=== PATIENT | female | born 1965 ===

== ENCOUNTER 2017-04-02 11:43 | Emergency (ER) | payer MEDICAID, OTHER ==
[2017-04-02 11:43] VITALS: BMI 29.5
[2017-04-02 13:37] LABS: BASO # 0.1 K/uL (0.0-0.2); MONO # 0.6 K/uL (0.0-0.8)
[2017-04-02 13:39] LABS: BASO % 0.9 % (0.0-2.0); EOS # 0.2 K/uL (0.0-0.7); EOS % 2.3 % (0.0-4.0); HEMATOCRIT 39.5 % (34.0-47.0); LYMPH % 19.5 % (20.0-40.0); MEAN CELL VOLUME 98.7 fL (81.0-99.0); MEAN CORPUSCULAR HGB CONC 33.5 g/dL (33.0-37.0); MEAN PLATELET VOLUME 8.3 fL (7.2-11.7); MONO % 6.1 % (0.0-10.0); NRBC % 0.1 % (0.0-2.0); RED CELL DISTRIBUTION WIDTH 15.5 % (11.5-14.5); WHITE BLOOD COUNT 10.3 K/uL (4.8-10.8)
[2017-04-02 13:59] LABS: RBC URINE < 1 /hpf (0-3); URINE BILIRUBIN NEGATIVE (NEGATIVE); URINE BLOOD NEGATIVE (NEGATIVE); URINE COLOR Yellow (YELLOW); URINE GLUCOSE (UA) NORMAL (Normal); URINE KETONE NEGATIVE (NEGATIVE); URINE LEUKOCYTE ESTERASE NEG Leu/uL (Negative); URINE PROTEIN NEGATIVE (NEGATIVE); URINE UROBILINOGEN NORMAL mg/dL (0.2-1.0)
[2017-04-02] MEDS ORDERED: Sodium Chloride 0.9% 1,000 ML IV ONE (14:15)
[2017-04-02 14:19] LABS: ALCOHOL SERUM < 10 mg/dl (0-10); ALKALINE PHOSPHATASE 56 U/L (38-126); ALT/SGPT 35 U/L (9-52); AST/SGOT 30 U/L (14-36); BILIRUBIN,TOTAL 0.4 mg/dL (0.2-1.3); BLOOD UREA NITROGEN 7 mg/dL (7-17); CARBON DIOXIDE 29 mmol/L (22-30); CHLORIDE 99 mmol/L (98-107); GFR AFRICAN-AMERICAN > 60; GLUCOSE,RANDOM 72 mg/dL (65-105); POTASSIUM 3.8 mmol/L (3.6-5.2); SODIUM 129 mmol/L (132-148); TOTAL PROTEIN 8.3 g/dL (6.3-8.3)
[2017-04-02] MEDS ORDERED: Sodium Chloride 0.9% 1,000 ML ONE (14:46)
[2017-04-02] MEDS ORDERED: Morphine 4 MG/ML VIAL ONE (14:51)
--- NOTE | 2017-04-02 14:54 | C.PDOC ---
History Of Present Illness 51 y/o female presents to ED with complaints of abdominal pain for 2 days with associated vomiting and diarrhea. Patient states she took Ibuprofen this morning with transient relief. Patient denies fever, chills, back pain, urinary symptoms, blood in stool or any other complaints at this time. H/o similar symptoms in the past, diagnosed with gastritis. Admits to cocaine and alcohol use yesterday. Time Seen by Provider: 04/02/17 12:46 Chief Complaint (Nursing): Abdominal Pain History Per: Patient History/Exam Limitations: no limitations Onset/Duration Of Symptoms: Days Current Symptoms Are (Timing): Still Present Past Medical History Reviewed: Historical Data, Nursing Documentation, Vital Signs Vital Signs: Last Vital Signs Temp 98.3 F 04/02/17 17:33 Pulse 65 04/02/17 17:33 Resp 20 04/02/17 17:33 BP 99/63 L 04/02/17 17:33 Pulse Ox 97 04/02/17 17:33 - Medical History PMH: Anxiety, Arthritis, Asthma, Bipolar Disorder, COPD, Depression, Emphysema, Fractures (R arm), HTN, Kidney Stones (patientv states she doesn't remember), Schizophrenia, Seizures Surgical History: No Surg Hx - [facility] Procedures DETOXIFICATION SERVICES FOR SUBSTANCE ABUSE TREATMENT (07/20/15) IMMOBILIZ/WOUND ATTN NEC (12/04/13) INJECT/INFUSE ELECTROLYT (04/13/13) INJECT/INFUSE NEC (12/04/13) INTRODUCE OF OTH THERAP SUBST INTO RESP TRACT, VIA OPENING (09/25/16) MEDS [facility] FOR SUBSTANCE ABUSE TREATMENT, ANTABUSE (07/20/15) NEBULIZER THERAPY (07/27/13) Family History: States: No Known Family Hx - Social History Hx Tobacco Use: Yes Hx Alcohol Use: Yes Hx Substance Use: Yes (heroin, marijuana) - Immunization History Hx Tetanus Toxoid Vaccination: Yes Hx Influenza Vaccination: Yes Hx Pneumococcal Vaccination: Yes Review Of Systems Constitutional: Negative for: Fever, Chills Gastrointestinal: Positive for: Vomiting, Abdominal Pain, Diarrhea Genitourinary: Negative for: Dysuria, Hematuria Musculoskeletal: Negative for: Back Pain Skin: Negative for: Rash Physical Exam - Physical Exam Appears: Non-toxic, Other (In painful distress) Skin: Warm, Dry, No Rash Head: Atraumatic, Normacephalic Eye(s): bilateral: Normal Inspection, EOMI Nose: Normal Oral Mucosa: Moist Chest: Symmetrical Cardiovascular: Rhythm Regular Respiratory: Normal Breath Sounds, No Rales, No Rhonchi, No Wheezing Gastrointestinal/Abdominal: Soft, Tenderness (Left sided abdomen), No Guarding, No Rebound Back: No CVA Tenderness Extremity: Normal ROM, Capillary Refill (<2 seconds) Neurological/Psych: Oriented x3 ED Course And Treatment - Laboratory Results Result Diagrams: 04/02/17 13:31 04/02/17 13:31 O2 Sat by Pulse Oximetry: 98 (RA) Pulse Ox Interpretation: Normal - CT Scan/US Abd/Pelvis Other Rad Studies (CT/US): Read By Radiologist, Radiology Report Reviewed CT/US Interpretation: PROCEDURE: CT Abdomen and Pelvis with contrast. HISTORY : pain. COMPARISON: None. TECHNIQUE: Contrast dose: Visipaque 320, 100 cc. Radiation dose: Total exam DLP = 244.73 mGy-cm. This CT exam was performed using one or more of the following dose reduction techniques: Automated exposure control, adjustment of the mA and/or kV according to patient size, and/ or use of iterative reconstruction technique. FINDINGS: LOWER THORAX: Unremarkable. LIVER: Diffuse penetration liver with liver is appreciated without focal mass or intrahepatic biliary duct dilatation identified. GALLBLADDER AND BILE DUCTS: Partially contracted which may account for limited mural thickening. No pericholecystic fluid collection or radiodense cholelithiasis related. CBD appears normal caliber. PANCREAS: Unremarkable. No gross lesion or ductal dilatation. SPLEEN: Unremarkable. ADRENALS: Unremarkable. No mass. KIDNEYS AND URETERS: Unremarkable. No hydronephrosis. No solid mass. VASCULATURE: Unremarkable. No aortic aneurysm. BOWEL: Lack of oral contrast limits the evaluation the gastrointestinal tract however there is no bowel obstruction appreciated or gross mural thickening. Limited retained fecal material scattered throughout the large bowel. APPENDIX: Normal appendix. PERITONEUM: Unremarkable. No free fluid. No free air. LYMPH NODES: Unremarkable. No enlarged lymph nodes. BLADDER: Unremarkable. REPRODUCTIVE : Trace fluid is seen in the endometrial cavity with the reproductive system otherwise unremarkable appearing. BONES: No acute fracture. OTHER FINDINGS: None. IMPRESSION: Trace fluid is seen the endometrial cavity. There is diffuse fatty infiltration of the liver. Remainder the examination is unremarkable as discussed above. Lack of oral contrast limits evaluation the gastrointestinal tract. Progress Note: Toradol ordered. On re-evaluation, pain improved minimally. Morphine and CT scan abdomen ordered. On re-evalaution, Patient is resting comfortably, abdomen remains soft, and patient is tolerating PO. Patient feels comfortable going home. Instructed to follow up with PMD in 1-2 days or return to ER if symtpoms persist or worsen. Disposition - Disposition Referrals: [facility] at [facility] [Outside] Miguel Ángel Chavez MD [Staff Provider] - Disposition: HOME/ ROUTINE Disposition Time: 17:12 Condition: STABLE Additional Instructions: Follow up with PMD in 1-2 days. Return to ER if symptoms persist or worsen. Prescriptions: Dicyclomine [Bentyl] 10 mg PO QID #20 cap Instructions: Acute Abdominal Pain (ED) Forms: [employer] 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 - Scribe Statement The provider has reviewed the documentation as recorded by the Robbiibchris Mcguire All medical record entries made by the Robbiibchris were at my direction and personally dictated by me. I have reviewed the chart and agree that the record accurately reflects my personal performance of the history, physical exam, medical decision making, and the department course for this patient. I have also personally directed, reviewed, and agree with the discharge instructions and disposition.
[2017-04-02] MEDS ORDERED: Iodixanol 320 MG/ML 100 ML BOTTLE IV ONE (15:24)
--- NOTE | 2017-04-02 16:46 | CT ---
PROCEDURE: CT Abdomen and Pelvis with contrast HISTORY: pain COMPARISON: None. TECHNIQUE: Contrast dose: Visipaque 320, 100 cc. Radiation dose: Total exam DLP = 244.73 mGy-cm. This CT exam was performed using one or more of the following dose reduction techniques: Automated exposure control, adjustment of the mA and/or kV according to patient size, and/or use of iterative reconstruction technique. FINDINGS: LOWER THORAX: Unremarkable. LIVER: Diffuse penetration liver with liver is appreciated without focal mass or intrahepatic biliary duct dilatation identified. GALLBLADDER AND BILE DUCTS: Partially contracted which may account for limited mural thickening. No pericholecystic fluid collection or radiodense cholelithiasis related. CBD appears normal caliber. PANCREAS: Unremarkable. No gross lesion or ductal dilatation. SPLEEN: Unremarkable. ADRENALS: Unremarkable. No mass. KIDNEYS AND URETERS: Unremarkable. No hydronephrosis. No solid mass. VASCULATURE: Unremarkable. No aortic aneurysm. BOWEL: Lack of oral contrast limits the evaluation the gastrointestinal tract however there is no bowel obstruction appreciated or gross mural thickening. Limited retained fecal material scattered throughout the large bowel. APPENDIX: Normal appendix. PERITONEUM: Unremarkable. No free fluid. No free air. LYMPH NODES: Unremarkable. No enlarged lymph nodes. BLADDER: Unremarkable. REPRODUCTIVE: Trace fluid is seen in the endometrial cavity with the reproductive system otherwise unremarkable appearing. BONES: No acute fracture. OTHER FINDINGS: None. IMPRESSION: Trace fluid is seen the endometrial cavity. There is diffuse fatty infiltration of the liver. Remainder the examination is unremarkable as discussed above. Lack of oral contrast limits evaluation the gastrointestinal tract.
[2017-04-02 17:33] VITALS: BP 99/63; PULSE 65; RESP 20; TEMP 98.3
[2017-04-02 17:58] VITALS: O2SAT 98
== END 2017-04-02 17:31 | disposition home or self-care (01) ==
LOC: C.ER 11:43
DX: R10.9 Unspecified abdominal pain (principal)
CPT/HCPCS: 74177; 80053; 80320; 80324; 80345; 80346; 80349; 80353; 80358; 80361; 81001; 83690; 83992; 84703; 85025; 96361; 96374; 96375; 99285; C9113; J1885; J2270; J2405; J7040; Q9967

== ENCOUNTER 2017-05-16 11:20 | Inpatient (IN) | payer MEDICAID ==
[2017-05-16 11:20] VITALS: BMI 29.5
--- NOTE | 2017-05-16 12:02 | C.PDOC ---
History Of Present Illness Patient is a 51 y/o female, with a Hx of depression, who presents to the ED with a complaint of SI and depression for the last week. Patient admits to auditory hallucinations and expresses want to overdose on her medications. Admits to drinking alcohol today. Patient has no other complaints at this time. Time Seen by Provider: 05/16/17 11:38 Chief Complaint (Nursing): Psychiatric Evaluation History Per: Patient History/Exam Limitations: no limitations Onset/Duration Of Symptoms: Days (1 week) Current Symptoms Are (Timing): Still Present Modifying Factor(s): Alcohol (drank alcohol today) Associated Symptoms: Depression, Suicidal Thoughts, Suicidal Plan Recent travel outside of the [place]: No Past Medical History Reviewed: Historical Data, Nursing Documentation, Vital Signs Vital Signs: Last Vital Signs Temp 98.7 F 05/16/17 11:30 Pulse 90 05/16/17 11:30 Resp 22 05/16/17 11:30 BP 134/83 05/16/17 11:30 Pulse Ox 100 05/16/17 13:59 - Medical History PMH: Anxiety, Arthritis, Asthma, Bipolar Disorder, COPD, Depression, Emphysema, Fractures (R arm), HTN, Kidney Stones (patientv states she doesn't remember), Schizophrenia, Seizures Denies: Chronic Kidney Disease Surgical History: No Surg Hx - [facility] Procedures DETOXIFICATION SERVICES FOR SUBSTANCE ABUSE TREATMENT (07/20/15) IMMOBILIZ/WOUND ATTN NEC (12/04/13) INJECT/INFUSE ELECTROLYT (04/13/13) INJECT/INFUSE NEC (12/04/13) INTRODUCE OF OTH THERAP SUBST INTO RESP TRACT, VIA OPENING (09/25/16) MEDS [facility] FOR SUBSTANCE ABUSE TREATMENT, ANTABUSE (07/20/15) NEBULIZER THERAPY (07/27/13) Family History: States: No Known Family Hx - Social History Hx Tobacco Use: Yes Hx Alcohol Use: Yes Hx Substance Use: Yes (heroin, marijuana) - Immunization History Hx Tetanus Toxoid Vaccination: Yes Hx Influenza Vaccination: Yes Hx Pneumococcal Vaccination: Yes Review Of Systems Except As Marked, All Systems Reviewed And Found Negative. Psych: Positive for: Depression, Suicidal ideation, Other (suicidal plan; auditory hallucinations) Physical Exam - Physical Exam Appears: Well, Non-toxic, No Acute Distress, Other (cheerful) Skin: Normal Color, Warm, Dry Head: Atraumatic, Normacephalic Oral Mucosa: Moist Chest: Symmetrical Cardiovascular: Rhythm Regular, No Murmur Respiratory: Normal Breath Sounds, No Rales, No Rhonchi, No Wheezing ED Course And Treatment - Laboratory Results Result Diagrams: 05/16/17 12:17 05/16/17 12:17 O2 Sat by Pulse Oximetry: 100 Medical Decision Making Medical Decision Making: HCG urine, UA, and blood work ordered. Patient is currntly 1:1; Crisis notified. 12:44pm patient is medically cleared and ready for discharge. Disposition - Disposition Disposition: HOSPITALIZED Disposition Time: 01:00 Condition: STABLE - Clinical Impression Clinical Impression: Schizoaffective disorder - Scribe Statement The provider has reviewed the documentation as recorded by the Scribe Lauren Barron All medical record entries made by the Scribe were at my direction and personally dictated by me. I have reviewed the chart and agree that the record accurately reflects my personal performance of the history, physical exam, medical decision making, and the department course for this patient. I have also personally directed, reviewed, and agree with the discharge instructions and disposition. Decision To Admit - Pt Status Changed To: Hospital Disposition Of: Inpatient - Admit Certification Admit to Inpatient:: After my assessment, the patient will require hospitalization for at least two midnights. This is because of the severity of symptoms shown, intensity of services needed, and/or the medical risk in this patient being treated as an outpatient. - InPatient: Physician Admission Certification: I certify that this patient requires 2 or more midnights of care for the following reason:: schizoaffective needs inpt - . Bed Request Type: Psychiatry Admitting Physician: Ruchi Sotomayor Patient Diagnosis: Schizoaffective disorder
[2017-05-16 12:18] LABS: HCG,QUALITATIVE URINE NEGATIVE (NEGATIVE)
[2017-05-16 12:23] LABS: BASO % 0.3 % (0.0-2.0); EOS # 0.2 K/uL (0.0-0.7); EOS % 2.1 % (0.0-4.0); HEMOGLOBIN 14.2 g/dL (11.0-16.0); LYMPH % 24.1 % (20.0-40.0); MEAN CELL VOLUME 98.1 fL (81.0-99.0); MEAN CORPUSCULAR HEMOGLOBIN 33.7 pg (27.0-31.0); MEAN CORPUSCULAR HGB CONC 34.4 g/dL (33.0-37.0); MEAN PLATELET VOLUME 7.9 fL (7.2-11.7); MONO # 0.5 K/uL (0.0-0.8); MONO % 5.9 % (0.0-10.0); NEUT # 5.7 K/uL (1.8-7.0); NEUT % 67.6 % (50.0-75.0); RBC 4.21 Mil/uL (3.80-5.20); RED CELL DISTRIBUTION WIDTH 15.4 % (11.5-14.5); WHITE BLOOD COUNT 8.4 K/uL (4.8-10.8)
[2017-05-16 12:25] LABS: SQUAMOUS EPITHIAL 2 /hpf (0-5); URINE BACTERIA RARE (<OCC); URINE BILIRUBIN NEGATIVE (NEGATIVE); URINE BLOOD NEGATIVE (NEGATIVE); URINE CLARITY Clear (Clear); URINE COLOR Yellow (YELLOW); URINE GLUCOSE (UA) NORMAL (Normal); URINE LEUKOCYTE ESTERASE NEG Leu/uL (Negative); URINE NITRATE NEGATIVE (NEGATIVE); URINE PROTEIN NEGATIVE (NEGATIVE); URINE UROBILINOGEN NORMAL mg/dL (0.2-1.0)
[2017-05-16 12:27] LABS: BARBITURATES, UR NEGATIVE (NEGATIVE); BENZODIAZEPINES, UR NEGATIVE (NEGATIVE); PHENCYCLIDINE, UR NEGATIVE (NEGATIVE)
[2017-05-16 12:43] LABS: ACETAMINOPHEN < 10.0 ug/mL (10.0-30.0); ALB/GLOB RATIO 1.3 (1.0-2.1); ALBUMIN 4.4 g/dL (3.5-5.0); ALT/SGPT 29 U/L (9-52); AST/SGOT 32 U/L (14-36); BLOOD UREA NITROGEN 10 mg/dL (7-17); CALCIUM 8.6 mg/dl (8.6-10.4); GFR AFRICAN-AMERICAN > 60; GFR NON-AFRICAN AMERICAN > 60; SALICYLATE < 1.0 mg/dL 1
[2017-05-16 13:01] LABS: OPIATES, UR POSITIVE (NEGATIVE)
[2017-05-16 14:06] VITALS: O2SAT 98
--- NOTE | 2017-05-16 15:14 | PCM.BM ---
Treatment Plan Problems - Problems identified on initial assessmt Depression Date Initiated: 05/16/17 Time Initiated: 15:10 Assessment reference: NA Status: Active Treatment assets and liabiliti Patient Assests: cooperative, ADL independent, cognitively intact Patient Liabilities: relationship conflicts - Milieu Protocol Maintain good personal hygiene: daily Encourage regular showers Maintain personal safety: every shift Educate patient to report safety concerns to staff, every shift Monitor environment for contraband/sharps Medication safety: Monitor for expected outcome, potential side effects: every shift, Assess barriers to learning: every shift, Assess readiness for medication education: every shift
--- NOTE | 2017-05-16 16:19 | PCM.BM ---
<Keri Rosasn - Last Filed: 05/16/17 16:21> Treatment Plan Problems - Problems identified on initial assessmt Depression Date Initiated: 05/16/17 Time Initiated: 15:10 Assessment reference: NA Status: Active Substance Abuse Date Initiated: 05/16/17 Time Initiated: 16:17 Assessment reference: NA Status: Active Treatment assets and liabiliti Patient Assests: cooperative, ADL independent, cognitively intact Patient Liabilities: financial problems, relationship conflicts, substance abuse - Milieu Protocol Maintain good personal hygiene: daily Encourage regular showers Maintain personal safety: every shift Educate patient to report safety concerns to staff, every shift Monitor environment for contraband/sharps Medication safety: Monitor for expected outcome, potential side effects: every shift, Assess barriers to learning: every shift, Assess readiness for medication education: every shift <Bran,Luisitooral - Last Filed: 05/19/17 11:16> - Diagnosis (1) Bipolar disorder, curr episode mixed, severe, with psychotic features Status: Acute Interventions: 05/19/17 11:16 * Assess/adjust medications daily and /or as needed * See patient on an individual basis 7x/week to assess level of manic behaviors and stability * Discuss risks, benefits, side effects and alternatives of medications * (2) EtOH dependence Status: Acute Interventions: 05/19/17 11:17 * Assess 7x/week regarding severity of withdrawal * Educate regarding risks, benefits, side effects and alternatives of medications * Use Motivational Interviewing for abstinence * Use CBT for relapse prevention * Medication management for withdrawal symptoms * Encourage medication assisted treatment * <Marcie Melendez - Last Filed: 05/19/17 11:21> Family Contact Family involvement: Family/SO is involved Family contact: Patient declines to allow family contact at present - Goals for Treatment Patient goals for treatment: "I need an outpatient program." Discharge/Continuing Care - Education Needs Education Needs: Patient Medication, Patient Coping Skills, Patient Placement options, Patient Community resources - Discharge Discharge Criteria: Tolerates medication w/o severe side effects, No longer exhibiting s/s of withdrawal, Reduction of target symptoms Discharge to:: Home - Treatment Team Participation Discussed with Family/SO: No Was Patient/Family/SO present at Treatment Team Meeting: Yes
[2017-05-16] MEDS ORDERED: Benzocaine/Menthol (Cepacol) Lozenge PO PRN (18:30)
[2017-05-16] MEDS ORDERED: Aluminum Hydroxide/Magnesium Hydroxide Susp (30 mL) PO PRN (18:30)
[2017-05-17] MEDS: Multiple Vitamins Tab PO SCH (09:58)
[2017-05-17] MEDS ORDERED: Pneumococcal 23-Valent Vaccine IM ONE (10:00)
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
[2017-05-17] MEDS: Divalproex 250 mg DR Tab PO SCH (17:10)
[2017-05-18] MEDS: Multiple Vitamins Tab PO SCH (09:46)
[2017-05-18] MEDS: Divalproex 250 mg DR Tab PO SCH ×2 (09:46→17:29)
--- NOTE | 2017-05-18 13:34 | PCM.PYCHPN ---
Psychiatric Progress Note - Psychiatric Progress Note Patient seen today, length of contact: 16 min Patient Chief Complaint: I am feeling depressed and suicidal.' Problems Identified/Issues Discussed: Patient seen and evaluated, chart reviewed and discussed with the nurse. Patient remained disorganized and internally preoccupied. Patient remained isolated, confined and withdrawn. She still reports of hearing voices. Patient still appears paranoid and delusional. She reports depressed mood and feelings of hopelessness and helplessness she still reporting suicidal ideations and crying profusely. She also reports withdrawal symptoms including cramps, sweating, headaches and anxiety. But she remains isolated and withdrawn. She is taking medication and denies any side effects.Symptoms are improving but she needs more time for stabilization. Supportive therapy and psychoeducation were given. Medication Change: Yes (Librium taper, methadone taper) Medical Record Reviewed: Yes Mental Status Examination - Cognitive Function Orientation: Person, Place, Situation, Time Memory: Intact Attention: WNL Concentration: Poor Association: Loose Fund of Knowledge: Poor - Mood Mood: Depressed, Anxious - Affect Affect: Constricted, Depressed - Speech Speech: Soft - Formal Thought Process Formal Thought Process: Hallucinations, Delusions, Paranoia, Loosening of associations - Suicidal Ideation Suicidal Ideation: No - Homicidal Ideation Homicidal Ideation: No Goal/Treatment Plan - Goal/Treatment Plan Need for Continued Stay: Severe depression anxiety, Severe functional impairment Progress Toward Problem(s) and Goals/Treatment Plan: Bipolar disorder MRE depressed severe with psychotic features CBT Psychoeducation Supportive therapy, group therapy, individual therapy Haldol 5 mg by mouth twice a day Cogentin 1 mg by mouth twice a day Depakote 250 mg by mouth twice a day Trazodone 50 mg by mouth daily at bedtime Alcohol use disorder severe CBT Psychoeducation Supportive therapy, individual therapy Use [place] for abstinence Alcohol withdrawal uncomplicated CBT Psychoeducation Supportive therapy, individual therapy Librium when necessary Start Librium taper Start folic acid/thiamine/multivitamin Opioid use disorder severe CBT Psychoeducation Supportive therapy, individual therapy Use [place] for abstinence Opioid withdrawal CBT Psychoeducation Supportive therapy, individual therapy Clonidine when necessary Methadone taper Cocaine use disorder severe Monitor signs and symptoms Use [place] for abstinence - Smoking Cessation Smoking Cessation Initiated: No
--- NOTE | 2017-05-19 10:23 | PCM.PYCHPN ---
Psychiatric Progress Note - Psychiatric Progress Note Patient seen today, length of contact: 15 min Patient Chief Complaint: I am feeling depressed and suicidal.' Problems Identified/Issues Discussed: Patient seen and evaluated, chart reviewed and discussed with the nurse. Patient remained disorganized and internally preoccupied. Patient remained isolated, confined and withdrawn. She still reports of hearing voices. Patient still appears paranoid and delusional. She reports depressed mood and feelings of hopelessness and helplessness she still reporting suicidal ideations and crying profusely. She also reports withdrawal symptoms including cramps, sweating, headaches and anxiety. But she remains isolated and withdrawn. She is taking medication and denies any side effects.Symptoms are improving but she needs more time for stabilization. Supportive therapy and psychoeducation were given. Medication Change: Yes (increase paxil, increase haldol, increase neurontin) Medical Record Reviewed: Yes Mental Status Examination - Cognitive Function Orientation: Person, Place, Situation, Time Memory: Intact Attention: WNL Concentration: Poor Association: WNL Fund of Knowledge: Poor - Mood Mood: Depressed, Anxious - Affect Affect: Constricted, Depressed - Speech Speech: Soft - Formal Thought Process Formal Thought Process: Hallucinations, Delusions, Paranoia - Suicidal Ideation Suicidal Ideation: No - Homicidal Ideation Homicidal Ideation: No Goal/Treatment Plan - Goal/Treatment Plan Need for Continued Stay: Remain at risks for inpatient hospitalization, Severe functional impairment Progress Toward Problem(s) and Goals/Treatment Plan: Bipolar disorder MRE depressed severe with psychotic features CBT Psychoeducation Supportive therapy, group therapy, individual therapy Haldol 10 mg by mouth twice a day Cogentin 1 mg by mouth twice a day Depakote 250 mg by mouth twice a day Trazodone 50 mg by mouth daily at bedtime Neurontin 300 gm PO TID Paxil 20 mg PO Daily Alcohol use disorder severe CBT Psychoeducation Supportive therapy, individual therapy Use NV for abstinence Alcohol withdrawal uncomplicated CBT Psychoeducation Supportive therapy, individual therapy Librium when necessary Start Librium taper Start folic acid/thiamine/multivitamin Opioid use disorder severe CBT Psychoeducation Supportive therapy, individual therapy Use NV for abstinence Opioid withdrawal CBT Psychoeducation Supportive therapy, individual therapy Clonidine when necessary Methadone taper Cocaine use disorder severe Monitor signs and symptoms Use NV for abstinence - Smoking Cessation Smoking Cessation Initiated: No
[2017-05-19] MEDS: Divalproex 250 mg DR Tab PO SCH ×2 (10:33→17:05)
[2017-05-19] MEDS: Multiple Vitamins Tab PO SCH (10:41)
--- NOTE | 2017-05-20 09:34 | PCM.PYCHPN ---
Psychiatric Progress Note - Psychiatric Progress Note Patient seen today, length of contact: 15 min Patient Chief Complaint: I am feeling depressed and suicidal.' Problems Identified/Issues Discussed: Patient seen and evaluated, chart reviewed and discussed with the nurse. As per staff patient appears more organized and she doesn't appear delusional or paranoid. She reports improvement in her voices and reports improvement in depressive symptoms. Reports a lot of improvement in his sleep and appetite. She also reports improvement in the withdrawal symptoms. She is taking medication and denies any side effects. Symptoms are improving but she needs more time for stabilization. Supportive therapy and psychoeducation were given. Medication Change: Yes (increase paxil, increase haldol, increase neurontin) Medical Record Reviewed: Yes Mental Status Examination - Cognitive Function Orientation: Person, Place, Situation, Time Memory: Intact Attention: WNL Concentration: WNL Association: WNL Fund of Knowledge: WNL - Mood Mood: Anxious - Affect Affect: Constricted - Speech Speech: Soft - Formal Thought Process Formal Thought Process: Paranoia - Suicidal Ideation Suicidal Ideation: No - Homicidal Ideation Homicidal Ideation: No Goal/Treatment Plan - Goal/Treatment Plan Need for Continued Stay: Remain at risks for inpatient hospitalization, Severe functional impairment Progress Toward Problem(s) and Goals/Treatment Plan: Bipolar disorder MRE depressed severe with psychotic features CBT Psychoeducation Supportive therapy, group therapy, individual therapy Haldol 10 mg by mouth twice a day Cogentin 1 mg by mouth twice a day Depakote 250 mg by mouth twice a day Trazodone 50 mg by mouth daily at bedtime Paxil 20 mg daily Increase Neurontin to 600 mg by mouth twice a day Alcohol use disorder severe CBT Psychoeducation Supportive therapy, individual therapy Use [place] for abstinence Alcohol withdrawal uncomplicated CBT Psychoeducation Supportive therapy, individual therapy Librium when necessary Librium taper Folic acid/thiamine/multivitamin Opioid use disorder severe CBT Psychoeducation Supportive therapy, individual therapy Use ME for abstinence Opioid withdrawal CBT Psychoeducation Supportive therapy, individual therapy Clonidine when necessary Methadone taper Cocaine use disorder severe Monitor signs and symptoms Use ME for abstinence - Smoking Cessation Smoking Cessation Initiated: No
[2017-05-20] MEDS: Divalproex 250 mg DR Tab PO SCH ×2 (09:56→17:50)
[2017-05-20] MEDS: Multiple Vitamins Tab PO SCH (09:57)
[2017-05-21 06:50] VITALS: BP 105/70; PULSE 63; RESP 18; TEMP 97.9
[2017-05-21] MEDS: Multiple Vitamins Tab PO SCH (09:21)
[2017-05-21] MEDS: Divalproex 250 mg DR Tab PO SCH (09:21)
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
== END 2017-05-21 10:25 | disposition home or self-care (01) | DRG 430 ==
LOC: C.ER 11:20 → C.9E 13:15 → C.5E 13:58
PROVIDERS: ADMIT Psychiatry & Neurology Psychiatry; ATTEND Psychiatry & Neurology Psychiatry
PROC: GZ3ZZZZ Medication Management (ICD-10-PCS; principal; 2017-05-16)
PROC: HZ46ZZZ Group Counseling for Substance Abuse Treatment, Psychoeducation (ICD-10-PCS; 2017-05-16)
PROC: GZ56ZZZ Individual Psychotherapy, Supportive (ICD-10-PCS; 2017-05-16)
PROC: HZ2ZZZZ Detoxification Services for Substance Abuse Treatment (ICD-10-PCS; 2017-05-16)
PROC: HZ59ZZZ Individual Psychotherapy for Substance Abuse Treatment, Supportive (ICD-10-PCS; 2017-05-16)
PROC: HZ89ZZZ Medication Management for Substance Abuse Treatment, Other Replacement Medication (ICD-10-PCS; 2017-05-16)
DX: F31.5 Bipolar disorder, current episode depressed, severe, with psychotic features (principal); R45.851 Suicidal ideations; F11.23 Opioid dependence with withdrawal; F10.239 Alcohol dependence with withdrawal, unspecified; F14.20 Cocaine dependence, uncomplicated; J43.9 Emphysema, unspecified; I10 Essential (primary) hypertension; F41.9 Anxiety disorder, unspecified; F17.200 Nicotine dependence, unspecified, uncomplicated; Z87.442 Personal history of urinary calculi

== ENCOUNTER 2018-03-10 15:25 | Inpatient (IN) | payer MEDICAID, OTHER ==
[2018-03-10 15:26] VITALS: BMI 33.4
[2018-03-10 16:32] LABS: BASO # 0.1 K/uL (0.0-0.2); BASO % 0.8 % (0.0-2.0); EOS # 0.6 K/uL (0.0-0.7); EOS % 5.3 % (0.0-4.0); LYMPH # 2.7 K/uL (1.0-4.3); LYMPH % 25.3 % (20.0-40.0); MEAN CELL VOLUME 96.8 fL (81.0-99.0); MEAN CORPUSCULAR HEMOGLOBIN 31.6 pg (27.0-31.0); MEAN CORPUSCULAR HGB CONC 32.7 g/dL (33.0-37.0); MEAN PLATELET VOLUME 7.9 fL (7.2-11.7); MONO # 0.5 K/uL (0.0-0.8); MONO % 4.5 % (0.0-10.0); NEUT # 6.7 K/uL (1.8-7.0); NEUT % 64.1 % (50.0-75.0); RBC 4.74 Mil/uL (3.80-5.20); RED CELL DISTRIBUTION WIDTH 15.1 % (11.5-14.5); WHITE BLOOD COUNT 10.5 K/uL (4.8-10.8)
[2018-03-10 16:34] LABS: HCG,QUALITATIVE URINE NEGATIVE (NEGATIVE)
[2018-03-10 16:36] LABS: SQUAMOUS EPITHIAL 2 /hpf (0-5); URINE BILIRUBIN NEGATIVE (NEGATIVE); URINE BLOOD 2+ (NEGATIVE); URINE CLARITY Clear (Clear); URINE COLOR Straw (YELLOW); URINE GLUCOSE (UA) NORMAL (Normal); URINE LEUKOCYTE ESTERASE NEG Leu/uL (Negative); URINE PROTEIN NEGATIVE (NEGATIVE); URINE UROBILINOGEN NORMAL mg/dL (0.2-1.0)
[2018-03-10 16:50] LABS: ALB/GLOB RATIO 1.3 (1.0-2.1); ALBUMIN 4.9 g/dL (3.5-5.0); ALT/SGPT 15 U/L (9-52); AST/SGOT 30 U/L (14-36); BLOOD UREA NITROGEN 9 mg/dL (7-17); CALCIUM 9.6 mg/dl (8.6-10.4); GFR NON-AFRICAN AMERICAN > 60
[2018-03-10 17:00] LABS: BARBITURATES, UR NEGATIVE (NEGATIVE); BENZODIAZEPINES, UR NEGATIVE (NEGATIVE); PHENCYCLIDINE, UR NEGATIVE (NEGATIVE)
[2018-03-10 17:03] LABS: OPIATES, UR POSITIVE (NEGATIVE)
--- NOTE | 2018-03-10 17:29 | C.PDOC ---
History Of Present Illness 52 y/o female with a PMHx of alcohol abuse, presents to the ED complaining of suicidal ideation today. She offers no physical complaints. Patient placed on 1:1 due to suicide precaution. She denies any other psychiatric complaint such as auditory/visual hallucinations or homicidal ideation. Patient admits to drinking today. <Zaria Yepez - Last Filed: 03/10/18 19:06> History Per: Patient History/Exam Limitations: no limitations Onset/Duration Of Symptoms: Hrs Current Symptoms Are (Timing): Still Present Modifying Factor(s): Alcohol Associated Symptoms: Suicidal Thoughts Involuntary Hold By: None Additional History Per: Prior Records <Zaria Yepez - Last Filed: 03/10/18 19:06> <Ashley Maeyn - Last Filed: 03/10/18 19:45> Time Seen by Provider: 03/10/18 15:55 Chief Complaint (Nursing): Psychiatric Evaluation Past Medical History Reviewed: Historical Data, Nursing Documentation, Vital Signs Vital Signs: Last Vital Signs Temp 97.9 F 03/10/18 15:49 Pulse 82 03/10/18 15:49 Resp 20 03/10/18 15:49 BP 133/88 03/10/18 15:49 Pulse Ox 100 03/10/18 15:49 - Medical History PMH: Anxiety, Arthritis, Asthma, Bipolar Disorder, COPD, Depression, Emphysema, Fractures (R arm), HTN, Kidney Stones (patientv states she doesn't remember), Schizophrenia, Seizures Denies: Diabetes, Hepatitis, HIV, Chronic Kidney Disease, Sexually Transmitted Disease - [facility] Procedures DETOXIFICATION SERVICES FOR SUBSTANCE ABUSE TREATMENT (05/16/17) GROUP HARPOONER FOR SUBSTANCE ABUSE TREATMENT, PSYCHOEDUCATION (05/16/17) IMMOBILIZ/WOUND ATTN NEC (12/04/13) INDIV PSYCHOTHERAPY FOR SUBSTANCE ABUSE TREATMENT, SUPPORT (05/16/17) INDIVIDUAL PSYCHOTHERAPY, SUPPORTIVE (05/16/17) INJECT/INFUSE ELECTROLYT (04/13/13) INJECT/INFUSE NEC (12/04/13) INTRODUCE OF OTH THERAP SUBST INTO RESP TRACT, VIA OPENING (09/25/16) MEDICATION MANAGEMENT (05/16/17) MEDS MGMT FOR SUBSTANCE ABUSE TREATMENT, ANTABUSE (07/20/15) MEDS MGMT FOR SUBSTANCE ABUSE TREATMENT, OTH REPL MED (05/16/17) NEBULIZER THERAPY (07/27/13) Family History: States: No Known Family Hx - Social History Hx Tobacco Use: Yes Hx Alcohol Use: Yes Hx Substance Use: Yes - Immunization History Hx Tetanus Toxoid Vaccination: No Hx Influenza Vaccination: No Hx Pneumococcal Vaccination: No <Zaria Yepez - Last Filed: 03/10/18 19:06> Vital Signs: Last Vital Signs Temp 97.9 F 03/10/18 15:49 Pulse 82 03/10/18 15:49 Resp 20 03/10/18 15:49 BP 133/88 03/10/18 15:49 Pulse Ox 100 03/10/18 19:06 - [facility] Procedures DETOXIFICATION SERVICES FOR SUBSTANCE ABUSE TREATMENT (05/16/17) GROUP HARPOONER FOR SUBSTANCE ABUSE TREATMENT, PSYCHOEDUCATION (05/16/17) IMMOBILIZ/WOUND ATTN NEC (12/04/13) INDIV PSYCHOTHERAPY FOR SUBSTANCE ABUSE TREATMENT, SUPPORT (05/16/17) INDIVIDUAL PSYCHOTHERAPY, SUPPORTIVE (05/16/17) INJECT/INFUSE ELECTROLYT (04/13/13) INJECT/INFUSE NEC (12/04/13) INTRODUCE OF OTH THERAP SUBST INTO RESP TRACT, VIA OPENING (09/25/16) MEDICATION MANAGEMENT (05/16/17) MEDS MGMT FOR SUBSTANCE ABUSE TREATMENT, ANTABUSE (07/20/15) MEDS MGMT FOR SUBSTANCE ABUSE TREATMENT, OTH REPL MED (05/16/17) NEBULIZER THERAPY (07/27/13) <Ashley Mayen - Last Filed: 03/10/18 19:45> Review Of Systems Except As Marked, All Systems Reviewed And Found Negative. Constitutional: Negative for: Fever Cardiovascular: Negative for: Chest Pain Respiratory: Negative for: Shortness of Breath Gastrointestinal: Negative for: Nausea, Vomiting Psych: Positive for: Suicidal ideation. Negative for: Other (hallucinations, homicidal ideation) <Zaria Yepez - Last Filed: 03/10/18 19:06> Physical Exam - Physical Exam Appears: Non-toxic, No Acute Distress Skin: Normal Color, Warm, Dry Head: Atraumatic, Normacephalic Eye(s): bilateral: Normal Inspection Oral Mucosa: Moist Neck: Normal ROM Chest: Symmetrical Cardiovascular: Rhythm Regular, No Murmur Respiratory: Normal Breath Sounds, No Accessory Muscle Use Gastrointestinal/Abdominal: Soft, No Tenderness, No Distention Extremity: Bilateral: Atraumatic, Normal ROM Neurological/Psych: Oriented x3, Normal Speech, Other (+ alcohol on breath) <Zaria Yepez - Last Filed: 03/10/18 19:06> ED Course And Treatment - Laboratory Results Result Diagrams: 03/10/18 16:27 03/10/18 16:27 O2 Sat by Pulse Oximetry: 100 (RA) Pulse Ox Interpretation: Normal Progress Note: Blood work and urine sent. cold storage worker will speak to and evaluate patient. <Zaria Yepez - Last Filed: 03/10/18 19:06> - Laboratory Results Result Diagrams: 03/10/18 16:27 03/10/18 16:27 <Ashley Mayen - Last Filed: 03/10/18 19:45> Disposition - Disposition Disposition Time: 19:04 <Zaria Yepez - Last Filed: 03/10/18 19:06> Discussed With Dr.: Ruchi Sotomayor Comment: accepted the pt on his service and took over the care at 7:45 PM Doctor Will See Patient In The: Hospital Counseled Patient/Family Regarding: Studies Performed, Diagnosis - POA Present On Arrival: None <Ashley Mayen - Last Filed: 03/10/18 19:45> - Disposition Disposition: HOSPITALIZED Condition: FAIR Forms: [facility] (Welsh) - Clinical Impression Clinical Impression: Major depression - PA / CLOTH REELER / Resident Statement MD/DO has reviewed & agrees with the documentation as recorded. - Scribe Statement The provider has reviewed the documentation as recorded by the Scribe (Glo Parada) All medical record entries made by the Scribe were at my direction and personally dictated by me. I have reviewed the chart and agree that the record accurately reflects my personal performance of the history, physical exam, medical decision making, and the department course for this patient. I have also personally directed, reviewed, and agree with the discharge instructions and disposition. <Zaria Yepez - Last Filed: 03/10/18 19:06> Physician Patient Turnover Patient Signed Over To: Ashley Mayen Handoff Comments: pending for an admission from psychiatrist <Zaria Yepez - Last Filed: 03/10/18 19:06> Decision To Admit <Zaria Yepez - Last Filed: 03/10/18 19:06> - Pt Status Changed To: Hospital Disposition Of: Inpatient - Admit Certification Admit to Inpatient:: After my assessment, the patient will require hospitalization for at least two midnights. This is because of the severity of symptoms shown, intensity of services needed, and/or the medical risk in this patient being treated as an outpatient. - InPatient: Physician Admission Certification: I certify that this patient requires 2 or more midnights of care for the following reason:: After my assessment, the patient will require hospitalization for at least two midnights. This is because of the severity of symptoms shown, intensity of services needed, and/or the medical risk in this patient being treated as an outpatient. - . Bed Request Type: Psychiatry Admitting Physician: Ruchi Sotomayor <Ashley Mayen - Last Filed: 03/10/18 19:45> - . Patient Diagnosis: Major depression
--- NOTE | 2018-03-10 20:24 | PCM.BM ---
<Keri Rosasn - Last Filed: 03/10/18 20:22> Treatment Plan Problems - Problems identified on initial assessmt Depression Date Initiated: 03/10/18 Time Initiated: 20:23 Assessment reference: NA Status: Active Substance Abuse Date Initiated: 03/10/18 Time Initiated: 20:24 Assessment reference: NA Status: Active Treatment assets and liabiliti Patient Assests: cooperative, ADL independent, cognitively intact Patient Liabilities: financial problems, substance abuse, medical problems - Milieu Protocol Maintain good personal hygiene: daily Encourage regular showers, daily Remind patient to perform daily oral care, daily Assist patient to perform ADL's Conduct patient checks and document Observation sheet: Q15 minutes Maintain personal safety: every shift Educate patient to report safety concerns to staff, every shift Monitor environment for contraband/sharps Medication safety: Monitor for expected outcome, potential side effects: every shift, Assess barriers to learning: every shift, Assess readiness for medication education: every shift <Ruchi Sotomayor - Last Filed: 03/11/18 10:50> - Diagnosis (1) Bipolar disorder, current episode depressed, severe, without psychotic features Status: Acute Interventions: 03/11/18 10:50 * Assess/adjust medications daily and /or as needed * See patient on an individual basis 7x/week to assess level of manic behaviors and stability * Discuss risks, benefits, side effects and alternatives of medications * (2) Heroin dependence Status: Acute Interventions: 03/11/18 10:50 * Assess 7x/week regarding severity of withdrawal * Educate regarding risks, benefits, side effects and alternatives of medications * Use Motivational Interviewing for abstinence * Use CBT for relapse prevention * Medication management for withdrawal symptoms * Encourage medication assisted treatment * <Kalina Chávez - Last Filed: 03/11/18 13:15> Family Contact Family involvement: Family/SO is involved Family contact: Patient agrees to contact - Goals for Treatment Patient goals for treatment: "I want go to rehab." Discharge/Continuing Care - Education Needs Education Needs: Patient Medication, Patient Diagnosis/Disease Process, Patient Coping Skills - Discharge Discharge Criteria: Free of Suicidal thoughts, Normal sleep pattern, Ability to care for self, No longer exhibiting s/s of withdrawal, Reduction of target symptoms Discharge to:: Substance Abuse Rehab - Treatment Team Participation Discussed with Family/SO: No Was Patient/Family/SO present at Treatment Team Meeting: Yes
[2018-03-11] MEDS: Fluticasone-Vilanterol 100/25mcg Diskus INH SCH (08:38)
[2018-03-11] MEDS: Multiple Vitamins Tab PO SCH (09:49)
[2018-03-11] MEDS ORDERED: Divalproex 250 mg DR Tab PO SCH (10:00)
--- NOTE | 2018-03-11 11:17 | PCM.PSYCH ---
Initial Psychiatric Evaluation - Initial Psychiatric Evaluation Type of Admission: Voluntary Legal Status: Capacity Chief Complaint (in patient's own words): I was feeling depressed and suicidal.' History of Present Illness and Precipitating Events: Patient is a 52-year-old, HF, who presented to the [facility] with depressed mood and suicidal ideation with a plan to overdose on her prescribed meds. Chief Pilot is familiar with the patient. Patient lu a long history of Bipolar disorder. Pt was just discharged from the almost 9 months ago. Per reports her daughter started living with her. She has [employer] involvement for her kids. She started becoming increasingly depressed and frustrated. She reports that she relapsed on opioids, cocaine and drinking and stopped taking her prescribed meds. As a result she became increasingly depressed and developed suicidal ideation. Patient reports she called her at work before attempting and he advised her to come to the ED for help. Patient reports approximately 14 past suicide attempts since the age 15, with 4 of the attempts being overdoses that resulted in patient being comatose. Patient reports her most recent suicide attempt was 1.5 years ago. Patient reports chronic depression that has worsened the past two weeks. Patient has feelings of helplessness, hopelessness, worthlessness and anhedonia. She reports her poor appetite has resulted in a 40lb weight loss occurring less than a year. She reports of abusing almost 7-10 nags of heroin daily along with cocaine, few drinks and 1-2 xanax bars. Patient reports of withdrawal symptoms including abdominal cramps, anxiety, headaches and sweating. She reports auditory hallucinations non command type and reports paranoid delusions that people are after her. PMH: HTN Current Medications: Active Medications Generic Name Dose Route Start Last Admin Trade Name Freq PRN Reason Stop Dose Admin Albuterol 2 puff 03/10/18 22:55 Ventolin Hfa 90 Mcg/Actuation (8 G) IH RQ6 PRN Shortness of Breath Divalproex Sodium 250 mg 03/11/18 10:00 03/11/18 09:49 Depakote PO Not Given BID TAMIKO Fluticasone/Vilanterol 1 puff 03/11/18 08:00 03/11/18 08:38 Breo Ellipta 100-25 Mcg Inh INH 1 puff RQ24 TAMIKO Administration Folic Acid 1 mg 03/11/18 10:00 03/11/18 09:50 Folic Acid PO 1 mg DAILY TAMIKO Administration Gabapentin 100 mg 03/11/18 10:00 03/11/18 09:49 Neurontin PO 100 mg TID TAMIKO Administration Hydroxyzine HCl 25 mg 03/10/18 22:56 Atarax PO Q6 PRN Anxiety Influenza Virus Vaccine 60 mcg 03/12/18 10:00 Fluzone Quad [id number] IM 03/12/18 10:01 .ONCE ONE Multivitamins 1 tab 03/11/18 10:00 03/11/18 09:49 Hexavitamin PO 1 tab DAILY TAMIKO Administration Pneumococcal Polyvalent Vaccine 0.5 ml 03/12/18 10:00 Pneumovax 23 Vaccine IM 03/12/18 10:01 .ONCE ONE Thiamine HCl 50 mg 03/11/18 10:00 03/11/18 09:49 Vitamin B1 Tab PO 50 mg DAILY TAMIKO Administration Trazodone HCl 50 mg 03/10/18 23:45 03/10/18 23:54 Desyrel PO 50 mg HS TAMIKO Administration Past Psychiatric History - Past Psychiatric History Previous Treatment History: Inpatient Pertinent Medical Hx (Current Medical&Sleep Prob, Allergies): Allergies Allergy/AdvReac Type Severity Reaction Status Date / Time No Known Allergies Allergy Verified 11/19/17 21:03 Albuterol/Ipratropium [Duoneb 3 mg/0.5 mg (3 ml) UD] 3 ml IH Q6H PRN #1 bottle 08/21/17 Divalproex [Depakote DR (*BID*)] 250 mg PO BID #30 tcp 08/21/17 Gabapentin [Neurontin] 100 mg PO TID #45 cap 08/21/17 PARoxetine [Paxil] 20 mg PO DAILY #15 tab 08/21/17 Albuterol HFA [Ventolin HFA 90 mcg/actuation (8 g)] 2 puff IH [id number] PRN #1 inh 11/21/17 Fluticasone/Salmeterol [Advair 250-50 Diskus] 1 each IH BID #1 inh 11/21/17 Folic Acid 1 mg PO DAILY #30 tab 11/21/17 Multivitamin Therapeutic Tab [Thera Tab] 1 tab PO DAILY #30 tab 11/21/17 Thiamine [Vitamin B1 Tab] 50 mg PO DAILY #30 tab 11/21/17 Review of Systems - Review of Systems All systems: reviewed and no additional remarkable complaints except - Psychiatric Psychiatric: Anxiety, Auditory Hallucinations, Irritability, Mood Swings, Paranoia, Suicidal Ideation Mental Status Examination - Personal Presentation Personal Presentation: Looks stated age - Affect Affect: Constricted, Depressed - Motor Activity Motor Activity: Calm - Reliability in Providing Information Reliability in Providing Information: Fair - Speech Speech: Organized - Mood Mood: Depressed, Anxious - Formal Thought Process Formal Thought Process: Hallucinations, Delusions, Paranoia - Hallucinations/Delusions Hallucinations: Auditory Delusions: Persecution - Obsessions/Compulsions Obsessions: No Compulsions: No - Cognitive Functions Orientation: Person, Place, Situation, Time Sensorium: Alert, Drowsy Attention/Concentration: Attentive Abstract Thinking: [place] Estimate of Intelligence: Below average Judgement: Imparied, as evidence by: Poor judgement, Imparied, as evidence by: Lack of insight into illness - Risk Risk: Suicidal, Withdrawal, Diminished functioning - Strength & Assets Inventory Strength & Assets Inventory: Family support DSM 5 DX - DSM 5 DSM 5 Diagnosis: Bipolar disorder MRE depressed severe with psychotic features Alcohol use disorder severe Alcohol withdrawal uncomplicated Sedative Hypnotic use disorder severe Opioid use disorder severe Opioid withdrawal Cocaine use disorder moderate - Recommended/Plan of Treatment Treatment Recommendations and Plan of Treatment: Bipolar disorder MRE depressed severe with psychotic features CBT Psychoeducation Supportive therapy, group therapy, individual therapy Olanzapine 5 mg PO BID Trazodone 100 mg by mouth daily at bedtime Hydroxyzine 25 mg by mouth every 6 hours when necessary Gabapentin 100 mg po TIDA Alcohol use disorder severe CBT Psychoeducation Supportive therapy, individual therapy Use [place] for abstinence Alcohol withdrawal uncomplicated CBT Psychoeducation Supportive therapy, individual therapy Librium when necessary Start Librium taper Start folic acid/thiamine/multivitamin Sedative Hypnotic use disorder severe Monitor signs and symptoms Use OK for abstinence Opioid use disorder severe CBT Psychoeducation Supportive therapy, individual therapy Use OK for abstinence Opioid withdrawal CBT Psychoeducation Supportive therapy, individual therapy Clonidine when necessary Methadone taper Cocaine use disorder moderate Monitor signs and symptoms Use OK for abstinence
[2018-03-11] MEDS ORDERED: Aluminum Hydroxide/Magnesium Hydroxide Susp (30 mL) PO PRN (11:34)
[2018-03-11] MEDS: Albuterol HFA 90 mcg/actuation (8 g) IH PRN (19:24)
[2018-03-12] MEDS: Fluticasone-Vilanterol 100/25mcg Diskus INH SCH (08:15)
[2018-03-12] MEDS: Multiple Vitamins Tab PO SCH (09:52)
[2018-03-12] MEDS ORDERED: Influenza Vaccine 60 MCG/0.5 ML SYR (3 yr & up) IM ONE (10:00)
[2018-03-12] MEDS ORDERED: Pneumococcal 23-Valent Vaccine IM ONE (10:00)
[2018-03-12] MEDS: Albuterol HFA 90 mcg/actuation (8 g) INH PRN ×2 (14:13→21:03)
[2018-03-12] MEDS: Benzocaine 10% Oral Anesthetic (12 ml) MM PRN ×2 (16:28→22:24)
[2018-03-12] MEDS ORDERED: guaiFENesin 100 mg/5 ml Syrup UD PO PRN (17:29)
--- NOTE | 2018-03-12 21:33 | PCM.PYCHPN ---
Psychiatric Progress Note - Psychiatric Progress Note Patient seen today, length of contact: 15 min Patient Chief Complaint: I was feeling depressed and suicidal.' Problems Identified/Issues Discussed: Patient seen and evaluated, chart reviewed and discussed with the nurse. Pt reports depressed mood, and reports feelings of hopelessness and helplessness. She still reports irritability and agitation. She remained isolated and withdrawn, and confined to her room. Patient reports of withdrawal symptoms including abdominal cramps, anxiety, headaches and sweating. She reports auditory hallucinations, and paranoia. Patient is compliant with medications and denies any side effects. Symptoms are improving but pt needs more time to stabilize. Support and psychoeducation given. Medication Change: Yes Medical Record Reviewed: Yes Mental Status Examination - Cognitive Function Orientation: Person, Place, Situation, Time Memory: Intact Attention: WNL Concentration: Poor Association: Loose Fund of Knowledge: WNL - Mood Mood: Depressed, Anxious - Affect Affect: Constricted, Depressed - Speech Speech: Soft - Formal Thought Process Formal Thought Process: Hallucinations, Delusions, Paranoia - Suicidal Ideation Suicidal Ideation: No - Homicidal Ideation Homicidal Ideation: No Goal/Treatment Plan - Goal/Treatment Plan Need for Continued Stay: Severe depression anxiety, Severe functional impairment Progress Toward Problem(s) and Goals/Treatment Plan: Bipolar disorder MRE depressed severe with psychotic features CBT Psychoeducation Supportive therapy, group therapy, individual therapy Olanzapine 5 mg PO BID Trazodone 100 mg by mouth daily at bedtime Hydroxyzine 25 mg by mouth every 6 hours when necessary Gabapentin 100 mg po TIDA Alcohol use disorder severe CBT Psychoeducation Supportive therapy, individual therapy Use OR for abstinence Alcohol withdrawal uncomplicated CBT Psychoeducation Supportive therapy, individual therapy Librium when necessary Librium taper Folic acid/thiamine/multivitamin Sedative Hypnotic use disorder severe Monitor signs and symptoms Use OR for abstinence Opioid use disorder severe CBT Psychoeducation Supportive therapy, individual therapy Use OR for abstinence Opioid withdrawal CBT Psychoeducation Supportive therapy, individual therapy Clonidine when necessary Methadone taper Cocaine use disorder moderate Monitor signs and symptoms Use OR for abstinence - Smoking Cessation Smoking Cessation Initiated: Yes
[2018-03-13] MEDS: Multiple Vitamins Tab PO SCH (10:10)
--- NOTE | 2018-03-13 10:19 | PCM.PYCHPN ---
Psychiatric Progress Note - Psychiatric Progress Note Patient seen today, length of contact: 15 min Patient Chief Complaint: I m feeling depressed.' Problems Identified/Issues Discussed: Patient seen and evaluated, chart reviewed and discussed with the nurse. Pt reports some improvement in her depressed mood, but still reports auditory hallucinations, and paranoia. She still reports irritability and agitation. She remained isolated and withdrawn, and confined to her room. Patient reports of withdrawal symptoms including abdominal cramps, anxiety, headaches and sweating. She still reports R ribs pain. Patient is compliant with medications and denies any side effects. Symptoms are improving but pt needs more time to stabilize. Support and psychoeducation given. Medication Change: Yes Medical Record Reviewed: Yes Mental Status Examination - Cognitive Function Orientation: Person, Place, Situation, Time Memory: Intact Attention: WNL Concentration: Poor Association: Loose Fund of Knowledge: WNL - Mood Mood: Depressed, Anxious - Affect Affect: Constricted, Depressed - Speech Speech: Soft - Formal Thought Process Formal Thought Process: Hallucinations, Delusions, Paranoia - Suicidal Ideation Suicidal Ideation: No - Homicidal Ideation Homicidal Ideation: No Goal/Treatment Plan - Goal/Treatment Plan Need for Continued Stay: Severe depression anxiety, Severe functional impairment Progress Toward Problem(s) and Goals/Treatment Plan: Bipolar disorder MRE depressed severe with psychotic features CBT Psychoeducation Supportive therapy, group therapy, individual therapy Olanzapine 5 mg PO BID Trazodone 100 mg by mouth daily at bedtime Hydroxyzine 25 mg by mouth every 6 hours when necessary Gabapentin 400 mg po TID Zoloft 100 mg Alcohol use disorder severe CBT Psychoeducation Supportive therapy, individual therapy Use RI for abstinence Alcohol withdrawal uncomplicated CBT Psychoeducation Supportive therapy, individual therapy Librium when necessary Librium taper Folic acid/thiamine/multivitamin Sedative Hypnotic use disorder severe Monitor signs and symptoms Use RI for abstinence Opioid use disorder severe CBT Psychoeducation Supportive therapy, individual therapy Use RI for abstinence Opioid withdrawal CBT Psychoeducation Supportive therapy, individual therapy Clonidine when necessary Methadone taper Cocaine use disorder moderate Monitor signs and symptoms Use RI for abstinence
[2018-03-13] MEDS ORDERED: Tramadol 25 mg PO PRN (10:48)
[2018-03-13] MEDS: Fluticasone-Vilanterol 100/25mcg Diskus INH SCH (13:21)
[2018-03-13] MEDS: Benzocaine 10% Oral Anesthetic (12 ml) MM PRN (15:39)
[2018-03-14] MEDS: Fluticasone-Vilanterol 100/25mcg Diskus INH SCH (08:03)
[2018-03-14] MEDS: Multiple Vitamins Tab PO SCH (09:07)
[2018-03-14] MEDS: Albuterol HFA 90 mcg/actuation (8 g) IH PRN (14:35)
--- NOTE | 2018-03-14 15:05 | RAD ---
Date of service: 03/14/2018 HISTORY: chest infection ? COMPARISON: No prior. TECHNIQUE: Chest PA and lateral FINDINGS: LUNGS: Minor linear atelectasis and or scarring left upper lung field. PLEURA: No significant pleural effusion identified. No pneumothorax apparent. CARDIOVASCULAR: No aortic atherosclerotic calcification present. Normal cardiac size. No pulmonary vascular congestion. OSSEOUS STRUCTURES: No significant abnormalities. VISUALIZED UPPER ABDOMEN: Normal. OTHER FINDINGS: None. IMPRESSION: Minor linear atelectasis and or scarring left upper lung field.
[2018-03-14] MEDS: Benzocaine 10% Oral Anesthetic (12 ml) MM PRN ×2 (15:53→22:58)
[2018-03-15] MEDS: Albuterol HFA 90 mcg/actuation (8 g) IH PRN (03:25)
[2018-03-15 07:16] VITALS: RESP 20; O2SAT 97
[2018-03-15] MEDS: Fluticasone-Vilanterol 100/25mcg Diskus INH SCH (07:43)
[2018-03-15] MEDS: Multiple Vitamins Tab PO SCH (09:37)
[2018-03-15] MEDS: Benzocaine 10% Oral Anesthetic (12 ml) MM PRN (14:46)
[2018-03-15 17:00] LABS: AMYLASE 138 U/L (30-110); LIPASE 219 U/L (23-300)
--- NOTE | 2018-03-16 04:36 | PCM.PYCHPN ---
Psychiatric Progress Note - Psychiatric Progress Note Patient seen today, length of contact: 15 min Patient Chief Complaint: I DON'T THINK I AM GETTING ANY BETTER Problems Identified/Issues Discussed: PT SEEN AND EXAMINED DISCUSSED WITH STAFF DISCUSSED WITH PT THE TIME IT TAKES FOR MEDICATIONS TO WORK Medical Problems: NOTHING ACUTE Diagnostic Results: REVIEWED DSM 5 Symptoms Update: MOOD SWINGS Medication Change: No Medical Record Reviewed: Yes Mental Status Examination - Cognitive Function Orientation: Person, Place, Situation, Time Memory: Intact Attention: WNL Concentration: Poor Association: WNL Fund of Knowledge: WNL - Mood Mood: Depressed, Anxious - Affect Affect: Constricted, Depressed - Speech Speech: Appropriate, Soft - Formal Thought Process Formal Thought Process: Hallucinations, Paranoia - Suicidal Ideation Suicidal Ideation: No - Homicidal Ideation Homicidal Ideation: No Goal/Treatment Plan - Goal/Treatment Plan Need for Continued Stay: Severe depression anxiety, Severe functional impairment Progress Toward Problem(s) and Goals/Treatment Plan: BIPOLAR DISORDER PAXIL ALCOHOL USE DISORDER CBT DC [facility] INDIVIDUAL SUPPORTIVE PSYCHOTHERAPY ALCOHOL USE DISORDER CBT DC [facility] OPIOID USE DISORDER CBT DC INDIVIDUAL PSYCHOTHERAPY Estimated Date of D/C: 03/20/18 - Smoking Cessation Smoking Cessation Initiated: No
--- NOTE | 2018-03-16 04:44 | PCM.PYCHPN ---
Psychiatric Progress Note - Psychiatric Progress Note Patient seen today, length of contact: 15 min Patient Chief Complaint: I AM VOMITING AND I HAVE PAIN ON THE LEFT SIDE GOING ALL WAY AROUND MY BACK Problems Identified/Issues Discussed: PT SEEN AND EXAMINED DISCUSSED WITH STUFF ASKED IF SHE HAD EVER HAD PANCREATITIS Medical Problems: RULE OUT PANCREATITIS Diagnostic Results: LIPASE AMYLASE ORDERED DSM 5 Symptoms Update: ANXIOUS IRRITABLE Medication Change: Yes ( D/C MOTRIN METHADONE X 1 TYLENOL) Medical Record Reviewed: Yes Mental Status Examination - Cognitive Function Orientation: Person, Place, Situation, Time Attention: Poor Concentration: Poor Association: WNL Fund of Knowledge: WNL - Mood Mood: Anxious - Affect Affect: Constricted, Depressed - Speech Speech: Appropriate, Soft - Formal Thought Process Formal Thought Process: No Impairment, Hallucinations, Paranoia - Suicidal Ideation Suicidal Ideation: No - Homicidal Ideation Homicidal Ideation: No Goal/Treatment Plan - Goal/Treatment Plan Need for Continued Stay: Severe depression anxiety, Severe functional impairment Progress Toward Problem(s) and Goals/Treatment Plan: BIPOLAR DISORDER PAXIL ALCOHOL USE DISORDER CBT SC [facility] INDIVIDUAL LINK PPORTIVE PSYCHOTHERAPY ALCOHOL USE DISORDER CBT SC GROUP [facility] OPIOID USE DISORDER CBT SC INDIVIDUAL PSYCHOTHERAPY POSSIBLE PROLONGED WITHDRAW VS PANCREATITIS Estimated Date of D/C: 03/20/18 - Smoking Cessation Smoking Cessation Initiated: No
[2018-03-16 06:45] VITALS: BP 132/95; PULSE 89; TEMP 98.4
[2018-03-16] MEDS: Fluticasone-Vilanterol 100/25mcg Diskus INH SCH (08:24)
[2018-03-16] MEDS: Multiple Vitamins Tab PO SCH (09:42)
--- NOTE | 2018-03-16 10:15 | PCM.PYCHDC ---
Mental Status Examination - Mental Status Examination Orientation: Person, Place, Situation, Time Memory: Intact Mood: Neutral Affect: Constricted Speech: Soft Attention: WNL Concentration: WNL Association: WNL Fund of Knowledge: WNL Formal Thought Process: No Impairment Description of patient's judgement and insight: good, fair Psychotic Thoughts and Behaviors: denies any AVH Suicidal Ideation: No Current Homicidal Ideation?: No Discharge Summary - Discharge Note Reason for Hospitalization: Patient is a 52-year-old, HF, who presented to the [facility] with depressed mood and suicidal ideation with a plan to overdose on her prescribed meds. Briquetting Machine Operator is familiar with the patient. Patient lu a long history of Bipolar disorder. Pt was just discharged from the almost 9 months ago. Per reports her daughter started living with her. She has [employer] involvement for her kids. She started becoming increasingly depressed and frustrated. She reports that she relapsed on opioids, cocaine and drinking and stopped taking her prescribed meds. As a result she became increasingly depressed and developed suicidal ideation. Patient reports she called her at work before attempting and he advised her to come to the ED for help. Patient reports approximately 14 past suicide attempts since the age 15, with 4 of the attempts being overdoses that resulted in patient being comatose. Patient reports her most recent suicide attempt was 1.5 years ago. Patient reports chronic depression that has worsened the past two weeks. Patient has feelings of helplessness, hopelessness, worthlessness and anhedonia. She reports her poor appetite has resulted in a 40lb weight loss occurring less than a year. She reports of abusing almost 7-10 nags of heroin daily along with cocaine, few drinks and 1-2 xanax bars. Patient reports of withdrawal symptoms including abdominal cramps, anxiety, headaches and sweating. She reports auditory hallucinations non command type and reports paranoid delusions that people are after her. Laboratory Data: Abnormal Lab Results 03/15/18 16:38 Amylase 138 H Lipase 219 Consultations:: List each consultation separately and include: 1. Reason for request. 2. Findings. 3. Follow-up Summary of Hospital Course include:: 1. Description of specific treatment plan utilized for patients during their course of treatmen. 2. Summarize the time- course for resolution of acute symptoms and/or regressed behaviors. 3. Describe issues identified and worked on during hospitalization. 4. Describe medication utilized. 5. Describe medical problems identified and treated. 6. Reassessment of suicide risk Summary of Hospital Course: Patient is a 52-year-old, HF, who presented to the [facility] with depressed mood and suicidal ideation with a plan to overdose on her prescribed meds. [employer] is familiar with the patient. Patient lu a long history of Bipolar disorder. Pt was just discharged from the almost 9 months ago. Per reports h er daughter started living with her. She has [employer] involvement for her kids. She started becoming increasingly depressed and frustrated. She reports that she relapsed on opioids, cocaine and drinking and stopped taking her prescribed meds. As a result she became increasingly depressed and developed suicidal ideation. Patient reports she called her at work before attempting and he advised her to come to the ED for help. Patient reports approximately 14 past suicide attempts since the age 15, with 4 of the attempts being overdoses that resulted in patient being comatose. Patient reports her most recent suicide attempt was 1.5 years ago. Patient reports chronic depression that has worsened the past two weeks. Patient has feelings of helplessness, hopelessness, worthlessness and anhedonia. She reports her poor appetite has resulted in a 40lb weight loss occurring less than a year. She reports of abusing almost 7-10 nags of heroin daily along with cocaine, few drinks and 1-2 xanax bars. Patient reports of withdrawal symptoms including abdominal cramps, anxiety, headaches and sweating. She reports auditory hallucinations non command type and reports paranoid delusions that people are after her. PMH: HTN - Diagnosis (1) Bipolar disorder, current episode depressed, severe, without psychotic features Current Visit: Yes Status: Acute (2) Heroin dependence Current Visit: No Status: Acute Comment: Management per psych - Final Diagnosis (DSM 5) Condition upon Discharge: FAIR DSM 5: Bipolar disorder MRE depressed severe with psychotic features Alcohol use disorder severe Alcohol withdrawal uncomplicated Sedative Hypnotic use disorder severe Opioid use disorder severe Opioid withdrawal Cocaine use disorder moderate Disposition: HOME/ ROUTINE Follow-up Treatment Plan: Bipolar disorder MRE depressed severe with psychotic features CBT Psychoeducation Supportive therapy, group therapy, individual therapy Olanzapine 5 mg PO BID Trazodone 100 mg by mouth daily at bedtime Hydroxyzine 25 mg by mouth every 6 hours when necessary Gabapentin 400 mg po TID Zoloft 100 mg Alcohol use disorder severe CBT Psychoeducation Supportive therapy, individual therapy Use [place] for abstinence Alcohol withdrawal uncomplicated CBT Psychoeducation Supportive therapy, individual therapy Librium when necessary Librium taper Folic acid/thiamine/multivitamin Sedative Hypnotic use disorder severe Monitor signs and symptoms Use MS for abstinence Opioid use disorder severe CBT Psychoeducation Supportive therapy, individual therapy Use MS for abstinence Opioid withdrawal CBT Psychoeducation Supportive therapy, individual therapy Clonidine when necessary Methadone taper Cocaine use disorder moderate Monitor signs and symptoms Use MS for abstinence Prescriptions/Medication Reconciliation: Gabapentin [Neurontin] 400 mg PO TID #90 cap Mirtazapine [Remeron] 30 mg PO HS #30 tab Olanzapine [Zyprexa] 5 mg PO BID #60 tablet Sertraline [Zoloft] 100 mg PO DAILY #30 tab - Smoking Cessation Smoking Cessation Medication prescribed: No - Antipsychotic Medications Pt discharged on 2 or more routine antipsychotic medications: No
== END 2018-03-16 10:30 | disposition home or self-care (01) | DRG 885 ==
LOC: C.ER 15:25 → C.5E 19:44
PROVIDERS: ADMIT Psychiatry & Neurology Psychiatry; ATTEND Psychiatry & Neurology Psychiatry
PROC: GZ3ZZZZ Medication Management (ICD-10-PCS; principal; 2018-03-10)
PROC: HZ2ZZZZ Detoxification Services for Substance Abuse Treatment (ICD-10-PCS; 2018-03-10)
PROC: HZ80ZZZ Medication Management for Substance Abuse Treatment, Nicotine Replacement (ICD-10-PCS; 2018-03-10)
PROC: GZHZZZZ Group Psychotherapy (ICD-10-PCS; 2018-03-10)
PROC: GZ56ZZZ Individual Psychotherapy, Supportive (ICD-10-PCS; 2018-03-10)
PROC: HZ56ZZZ Individual Psychotherapy for Substance Abuse Treatment, Psychoeducation (ICD-10-PCS; 2018-03-10)
PROC: HZ59ZZZ Individual Psychotherapy for Substance Abuse Treatment, Supportive (ICD-10-PCS; 2018-03-10)
DX: F31.5 Bipolar disorder, current episode depressed, severe, with psychotic features (principal); F10.239 Alcohol dependence with withdrawal, unspecified; F11.23 Opioid dependence with withdrawal; F13.20 Sedative, hypnotic or anxiolytic dependence, uncomplicated; F14.20 Cocaine dependence, uncomplicated; R45.851 Suicidal ideations; F17.210 Nicotine dependence, cigarettes, uncomplicated; F41.9 Anxiety disorder, unspecified; I10 Essential (primary) hypertension; J43.9 Emphysema, unspecified; Z91.5 Personal history of self-harm; Z87.442 Personal history of urinary calculi